=== PATIENT | female | born 1960 | race Caucasian/White ===

== ENCOUNTER → 2018-02-23 14:24 | Outpatient (CLI) | payer OTHER, SELFPAY ==
--- NOTE | 2018-02-23 | DI.CT.S_ITS ---
PROCEDURE: CT LUNG LOW DOSE SCREENING INDICATIONS: NICOTINE ABUSE/DEPENDENCE TECHNIQUE: Noncontrast 2.0-2.5 mm thick sections acquired from the pulmonary apices to the posterior costophrenic angles. 7 mm thick coronal and sagittal MIP reformats were then acquired. A low radiation dose technique was utilized. COMPARISON: None. FINDINGS: Image quality: Diagnostic, given the low radiation dose technique. Lungs and pleura: No effusions or consolidations. No pneumothorax. No nodules or mass lesion. Mediastinum: Heart size is normal. No pericardial effusion. No mediastinal adenopathy by size criteria. Thoracic aorta and central pulmonary arteries are normal in size. Esophagus is normal in caliber. No hiatal hernia. Bones and chest wall: No suspicious bony lesions. No vertebral body compression fractures. No axillary or supraclavicular adenopathy by size criteria. Thyroid gland is unremarkable. Abdomen: There is a 10 mm focus of low attenuation within the superior left renal pole consistent with cyst. Visualized upper abdomen solid organs and bowel loops appear normal in the absence of contrast. IMPRESSION: 1. No nodules or mass lesions. Annual screening is recommended. Dictated by: Tabitha Nicholas M.D. on 02/23/2018 at 16:16 Approved by: Tabitha Nicholas M.D. on 02/23/2018 at 16:19
== END ==
PROVIDERS: PCP Physician Assistant Medical; Visit Provider Family Medicine
DX: F17.200 Nicotine dependence, unspecified, uncomplicated (principal)
CPT/HCPCS: 71250

== ENCOUNTER → 2019-11-19 10:22 | Outpatient (CLI) | payer OTHER, SELFPAY ==
[2019-11-20 09:51] LABS: COVID19 Sendout Not Detected (Not Detect)
== END ==
PROVIDERS: PCP Family Medicine; Visit Provider Nurse Practitioner
DX: Z11.59 Encounter for screening for other viral diseases (principal)
CPT/HCPCS: 87635

== ENCOUNTER 2019-11-22 08:03 | Day surgery (SDC) | payer OTHER, SELFPAY ==
[2019-11-22] MEDS: SODIUM CHLORIDE 0.9% 1,000 ML 200 ML IV (08:37)
[2019-11-22 08:40] VITALS: BP 118/76; PULSE 67; RESP 16; TEMP 36.2; O2SAT 96; BMI 32.1
--- NOTE | 2019-11-22 08:56 | PM.HP.1 ---
History of Present Illness History of Present Illness Date Patient Seen: 11/22/19 Time Patient Seen: 08:56 Chief complaint: SCREENING COLONOSCOPY Narrative: This is a 59-year-old woman who had a prior screening colonoscopy 10 years ago which was normal. She says that since then she has had nothing new. She denies any melena, hematochezia, unexplained weight loss, unexplained abdominal pain. She denies any family history of colon polyps or colon cancers. ROS: COPD, neuropathy, denies nausea, reports loose stools. Thirteen system review is otherwise negative other than as mentioned below and in HPI. PE: GENERAL: Well groomed and cooperative. Appears stated age. Answers questions promptly and appropriately. Vital signs noted. HENT: Normocephalic, atraumatic. Hearing intact. EYES: Conjunctiva pink, sclera white, no periorbital swelling. CARDIOVASCULAR: Regular rate. No pedal edema. RESPIRATORY: Non-tachypneic, breathing comfortably on room air. GASTROINTESTINAL: Abdomen soft and non-distended GENITALURINARY: No flank tenderness. MUSCULOSKELETAL: Equal tone and mass bilaterally. SKIN: Warm, dry, soft, appropriate color for ethnicity. No other lesions, rashes, or wounds. NEURO: Alert and Oriented X 3. No gross sensory deficits, or cognitive issues. PSYCH: Appropriate affect and mood. Patient History Medical History COPD (chronic obstructive pulmonary disease) (Acute) Diabetes (Acute) Hypertension (Acute) Surgical History H/O sinus surgery (Acute) H/O: hysterectomy (Acute) History of back surgery (Acute) Family & Social History Social History: household members spouse,family Tobacco & Substance use: Tobacco type cigarettes Smoking Status Current every day smoker Smoking packs per day 2 alcohol intake never Substance Use Type does not use Meds Home Medications and Allergies Home Medications Medication Instructions Recorded Confirmed Type albuterol sulfate 2 puff INHALATION QAM 11/22/19 11/22/19 History atenolol 25 mg PO DAILY 11/22/19 11/22/19 History furosemide 20 mg PO DAILY 11/22/19 11/22/19 History hydrochlorothiazide 25 mg PO DAILY 11/22/19 11/22/19 History levothyroxine 25 mcg PO DAILY 11/22/19 11/22/19 History lisinopril 10 mg PO DAILY 11/22/19 11/22/19 History metformin 1,000 mg PO QPM 11/22/19 11/22/19 History montelukast 10 mg PO DAILY 11/22/19 11/22/19 History Allergies Allergy/AdvReac Type Severity Reaction Status Date / Time cefpodoxime [From Vantin] Allergy Mild Rash Verified 11/22/19 08:22 Exam Vital Signs (past 8 hours): - 11/22/19 08:40 Temperature 97.2 F L Pulse Rate 67 Respiratory Rate 16 Blood Pressure 118/76 Pulse Oximetry 96 Oxygen Delivery Method Room Air Assessment & Plan Assessment and plan (1) At average risk for colon cancer: Status: Acute Assessment & Plan narrative: Risks and benefits of screening colonoscopy and possible polypectomy were discussed with the patient including risk of bleeding, perforation, need for additional procedures, risks of anesthesia. The patient desires to proceed with the colonoscopy procedure. COVID-19 COVID-19 status: Negative Result date/Date tested (Pos, Neg/Pending): 11/19/19 Time Spent With Patient Time with patient: 15-24 minutes
--- NOTE | 2019-11-22 08:59 | PM.OP.ENDO ---
Operative Date/Time/Diagnoses Date of procedure: 11/22/19 Time of procedure: 08:59 Pre-op diagnosis: Average risk for colon cancer, 10 years since last screening colonoscopy Post-op diagnosis: other (Moderate diverticulosis througout the colon; no polyps) Procedure & Clinicians Study performed: Colonoscopy Conscious sedation performed by the endoscopist Indications: Average risk for colon cancer, 10 years since last screening colonoscopy Surgeon: Lily Dykes Procedure Notes SCOAP/Timeout: Performed Procedure in detail: The patient was brought to the room and placed in left lateral decubitus position with all bony prominences padded. A time-out was performed and then the patient was given procedural sedation starting with [4] mg of Versed and [100] mcg of fentanyl. Total of 5 mg of Versed and 150 micro g of fentanyl were given for the entire procedure. Vitals were monitored throughout the procedure and remained stable. Once adequately sedated, the procedure was begun. A rectal exam was performed revealing [no abnormalities]. The colonoscope was then introduced to the rectum and advanced to the cecum in the usual fashion. []The cecum was identified by the appendiceal orifice, the mucosal tri-fold, and the ileocecal valve. The scope was then retracted while rotating side to side and examining each mucosal fold. Moderate diverticulosis was seen throughout the colon without signs of active diverticulitis. No polyps or other lesions were seen. [] At the conclusion of the procedure retroflexion was performed and [small grade 1-2 internal hemorrhoids without stigmata of bleeding were seen]. The scope was then withdrawn from the rectum the procedure was concluded. The patient tolerated the procedure well and was transferred to the PACU in stable condition. Scope withdrawal time: 8 Sedation minutes: 18 Findings: diverticulosis (Moderate diverticulosis throughout the colon) Specimen(s): none sent Complications: none Impression: Moderate diverticulosis Post-procedure Recommendations: Colonscopy in 10 years and Other recommendation (Use of fiber supplement) Follow up: as needed Disposition: PACU
[2019-11-22] MEDS: fentaNYL 250 MCG/5 ML INJ IV ×2 (09:02→09:11)
[2019-11-22] MEDS: MIDAZOLAM 5 MG/5 ML VIAL IV ×3 (09:02→09:11)
[2019-11-22 09:25] VITALS: BP 131/67; PULSE 82; RESP 18; TEMP 36.3; O2SAT 98
[2019-11-22 09:30] VITALS: BP 118/77; PULSE 78; RESP 20; O2SAT 97
[2019-11-22 09:33] VITALS: BP 127/77; PULSE 70; RESP 16; TEMP 35.9; O2SAT 97
[2019-11-22 09:53] VITALS: BP 115/79; PULSE 73; RESP 16; TEMP 36.6; O2SAT 96
== END 2019-11-22 09:55 | disposition home or self-care (01) ==
PROVIDERS: PCP Family Medicine; Referring Provider Family Medicine; Visit Provider Surgery
PROC: 0DJD8ZZ Inspection of Lower Intestinal Tract, Via Natural or Artificial Opening Endoscopic (ICD-10-PCS; CPT 45378; principal; 2019-11-22 09:15)
DX: Z12.11 Encounter for screening for malignant neoplasm of colon (principal); K57.30 Diverticulosis of large intestine without perforation or abscess without bleeding; K64.0 First degree hemorrhoids
CPT/HCPCS: 45378; 99152; J2250; J3010

== ENCOUNTER 2020-10-25 14:06 | Emergency (ER) | payer OTHER, SELFPAY ==
[2020-10-25 14:15] VITALS: BP 128/70; PULSE 69; RESP 18; TEMP 37.1; O2SAT 99
--- NOTE | 2020-10-25 14:18 | DI.RAD.S_ITS ---
PROCEDURE: XR HIP W PEL IF DONE RT 2V INDICATIONS: worsening pain for several days no known injury TECHNIQUE: AP pelvis with lateral view(s) of the right hip(s). COMPARISON: None. FINDINGS: Bones: No fractures or dislocations. Pelvic ring appears intact. No suspicious bony lesions. Soft tissues: The visualized bowel gas pattern is normal. Faint calcification along the superolateral aspect of the right acetabular rim. No suspicious soft tissue calcifications. Surgical changes in the right lower quadrant of the abdomen. IMPRESSION: 1. No fracture or dislocation. 2. Possibly capsular calcification seen along the right femoroacetabular joint laterally. Dictated by: Shawna Pretty M.D. on 10/25/2020 at 14:39 Approved by: Shawna Pretty M.D. on 10/25/2020 at 14:41
--- NOTE | 2020-10-25 18:42 | ED.LOWEXIN ---
HPI - Extremity Injury (Lower) General Chief Complaint: Extremity Injury, Lower Stated Complaint: Rt Leg/Groin Pain Time Seen by Provider: 10/25/20 18:42 Source: patient Mode of arrival: Ambulatory Limitations: no limitations History of Present Illness HPI Narrative: This is a 60-year-old female who comes emergency department with complaint of right leg/hip pain. Patient's pain started in her right buttock and is radiating down towards her knee. It has been 5 days it started on Monday. She does recall any incident or any particular movement that seem to cause her symptoms. She has had low back pain in the past with 2 prior lumbar surgeries. She does not have any low back pain today. She does not have any numbness, tingling or new weakness. She does have chronic weakness with foot drop on the left but her symptoms are on the right today. No saddle anesthesia. No bowel or bladder incontinence. No fevers. She denies any other symptoms. She has tried 1 of her 's Soma but was not particularly helpful. She has been using a walker at home but finds it quite uncomfortable to weightbear. Related Data Home Medications Medication Instructions Recorded Confirmed albuterol sulfate 90 mcg/actuation 2 puff INHALATION QAM 11/22/19 11/22/19 aerosol inhaler atenolol 25 mg tablet 25 mg PO DAILY 11/22/19 11/22/19 furosemide 20 mg tablet 20 mg PO DAILY 11/22/19 11/22/19 hydrochlorothiazide 25 mg tablet 25 mg PO DAILY 11/22/19 11/22/19 levothyroxine 25 mcg tablet 25 mcg PO DAILY 11/22/19 11/22/19 lisinopril 10 mg tablet 10 mg PO DAILY 11/22/19 11/22/19 metformin 500 mg tablet,extended 1,000 mg PO QPM 11/22/19 11/22/19 release 24 hr montelukast 10 mg tablet 10 mg PO DAILY 11/22/19 11/22/19 Previous Rx's Medication Instructions Recorded gabapentin 300 mg capsule 300 mg PO TID #30 cap 10/25/20 (Neurontin) hydrocodone 5 mg-acetaminophen 325 1 tab PO Q6H PRN #7 tab 10/25/20 mg tablet Allergies Allergy/AdvReac Type Severity Reaction Status Date / Time cefpodoxime [From Vantin] Allergy Mild Rash Verified 11/22/19 08:22 Review of Systems Review of Systems ROS Unobtainable: All systems reviewed & are unremarkable except as noted in HPI and below Patient History Medical History COPD (chronic obstructive pulmonary disease) Diabetes Hypertension Surgical History H/O sinus surgery H/O: hysterectomy History of back surgery Social History household members: spouse and family Smoking Status: Current every day smoker alcohol intake: never Smoking Status: Current every day smoker Substance Use Type: does not use Exam Narrative Exam Narrative: GENERAL: Alert and oriented x three, female in mild distress, sitting on edge of bed. HEENT: Head normocephalic, atraumatic, EOMI, pupils reactive, face symmetric, moist mucous membranes NECK: Supple, full range of motion CARDIOVASCULAR: Regular rate and rhythm without murmurs, rubs or gallops. RESPIRATORY: Breath sounds equal bilaterally, no wheezes rales or rhonchi. ABDOMEN: Soft, nontender. Normoactive bowel sounds all 4 quadrants. No guarding or rebound, rigidity, no mass : No CVA tenderness BACK: No cervical, thoracic or lumbar vertebral point tenderness. Patient has normal range of motion. Rectal exam is deferred. Muscle strength is 5/5 in right lower extremities with chronic foot drop of left foot but 5/5 at thigh, Tibialis pulses are 2+ and lower extremities. Sensation is intact in the lower extremities. EXTREMITIES: Normal range of motion, no clubbing or edema. Neurovascularly intact NEUROLOGICAL: Cranial nerves II through XII grossly intact. Moving all extremities SKIN: Warm, dry, no petechiae, no rashes or lesions. Initial Vital Signs Initial Vital Signs: Vital Signs Temperature 98.7 F 10/25/20 14:15 Pulse Rate 69 10/25/20 14:15 Respiratory Rate 18 10/25/20 14:15 Blood Pressure 128/70 10/25/20 14:15 Pulse Oximetry 99 10/25/20 14:15 Course Orders Ordered: Discontinued Medications Hydrocodone Bitart/Acetaminophen (Hydrocodone/Acet 5/325 Prepack) 1 bottle MISC SEEINSTR ONE Stop: 10/25/20 18:52 Last Admin: 10/25/20 18:54 Dose: 1 bottle Documented by: JAMEY Ketorolac Tromethamine (Ketorolac 30 Mg/Ml Vial) 30 mg IM NOW ONE Stop: 10/25/20 18:52 Last Admin: 10/25/20 18:55 Dose: 30 mg Documented by: JAMEY Vital Signs Vital signs: Vital Signs - 8 hr 10/25/20 14:15 Temperature 98.7 F Pulse Rate 69 Respiratory Rate 18 Blood Pressure 128/70 Pulse Oximetry 99 MDM - Extremity Injury (Lower) Imaging Data Extremity x-ray #1: Radiologist's Impression: [address] [id number] ReportSigned Patient: Abimbola Law AMR#: [id number]: 9Acct:[id number]/Sex: 60 / FDate of Service: 10/25/20Loc: EDAccession Number: [id number] Procedure: XR hip w pel if done RT 2V Ordering Provider: Tamiko Drake D.O. PROCEDURE: XR HIP W PEL IF DONE RT 2V INDICATIONS: worsening pain for several days no known injury TECHNIQUE: AP pelvis with lateral view(s) of the right hip(s). COMPARISON: None. FINDINGS: Bones: No fractures or dislocations. Pelvic ring appears intact. No suspicious bony lesions. Soft tissues: The visualized bowel gas pattern is normal. Faint calcification along the superolateral aspect of the right acetabular rim. No suspicious soft tissue calcifications. Surgical changes in the right lower quadrant of the abdomen. IMPRESSION: 1. No fracture or dislocation. 2. Possibly capsular calcification seen along the right femoroacetabular joint laterally. Dictated by: Shawna Pretty M.D. on 10/25/2020 at 14:39 Approved by: Shawna Pretty M.D. on 10/25/2020 at 14:41 [facility] Narrative Medical decision making narrative: This is a 60-year-old female who has had pain in her right buttock and hip radiating down towards her knee since Monday, 5 days. Patient does not recall any injury. She has had chronic low back issues in the past but this feels different and she is not having any back pain. She states it starts more in the buttock and radiates down words. It is painful for to weightbear. She does not any decrease in strength on her right side. She has chronic footdrop on the left. She has not had any new neurologic changes. Patient does not have any other red flag symptoms. She has been getting around and has a walker at home that she has been using. Patient was given referral for 2 options for orthopedic surgery. Discussed that she does have some calcification of the femoroacetabular joint on her exam she is not particularly tender over the trochanter and her examination and clinical findings seem more consistent with radiculopathy. But discussed with patient she would probably benefit from following up with orthopedic to be more closely examined. Discharge Plan Departure Patient Disposition: Home Clinical Impression: Right sided sciatica, Calcification, joint Instructions: DI for Back Pain With Sciatica Activity Restrictions/Additional Instructions: Follow up with your physician and/or orthopedic surgery. Your imaging today shows some possible calcification at the right femoroacetabular joint. Unsure if this could be the cause of your pain is her symptoms do see somewhat consistent with sciatica as well. I think it may be helpful to follow-up with orthopedic surgery for further evaluation. This is included below. Take pain medication daily as prescribed. This medication can be titrated upwards if it is not effective. It can be very helpful for nerve pain/ In the short term you may take narcotic pain medication. This medication can make you sleepy do not drive, perform hazardous activities or make any major decisions while taking it. This medication will make you constipated please take a stool softener once to twice daily until stools are soft and regular. Prescription was sent to [facility] in [place]. Please return for fevers, rapidly worsening or uncontrolled pain, loss of bowel or bladder control, new weakness, inability to move her leg, feel your leg, or other new or concerning symptoms. Prescriptions: New hydrocodone-acetaminophen 5-325 mg tablet 1 tab PO Q6H PRN (Reason: pain) Qty: 7 RF: 0 gabapentin [Neurontin] 300 mg capsule 300 mg PO TID Qty: 30 RF: 0 No Action atenolol 25 mg tablet 25 mg PO DAILY RF: 0 levothyroxine 25 mcg tablet 25 mcg PO DAILY RF: 0 lisinopril 10 mg tablet 10 mg PO DAILY RF: 0 montelukast 10 mg tablet 10 mg PO DAILY RF: 0 hydrochlorothiazide 25 mg tablet 25 mg PO DAILY RF: 0 furosemide 20 mg tablet 20 mg PO DAILY RF: 0 albuterol sulfate 90 mcg/actuation HFA aerosol inhaler 2 puff INHALATION QAM RF: 0 metformin 500 mg tablet extended release 24 hr 1,000 mg PO QPM RF: 0 Referrals: Thom Villa MD [Physician] - Ladarius Martini MD [Physician] - Sean Guzmán DO [Primary Care Provider] -
[2020-10-25] MEDS: HYDROCODONE/ACET 5/325 PREPACK 1 BOTTLE MISC (18:54)
[2020-10-25] MEDS: KETOROLAC 30 MG/ML VIAL IM (18:55)
[2020-10-25 19:23] VITALS: BP 137/62; PULSE 65; RESP 15; O2SAT 98
== END 2020-10-25 19:24 | disposition home or self-care (01) ==
PROVIDERS: Emergency Provider Emergency Medicine; PCP Family Medicine
DX: M54.31 Sciatica, right side (principal); M25.80 Other specified joint disorders, unspecified joint
CPT/HCPCS: 73502; 96372; 99283; J1885

== ENCOUNTER → 2022-02-22 08:57 | Outpatient (CLI) | payer OTHER, SELFPAY ==
--- NOTE | 2022-02-22 | DI.MG.S_ITS ---
BILATERAL DIGITAL SCREENING MAMMOGRAM 3D/2D WITH CAD: 02/22/2022 CLINICAL: Routine screening. Comparison is made to exams dated: 05/30/2019 mammogram, 07/01/2015 mammogram, and 05/29/2014 mammogram - outside location. There are scattered areas of fibroglandular density in both breasts (category b / 25%-50% glandular tissue). Current study was also evaluated with a Computer Aided Detection (CAD) system. No significant masses, calcifications, or other findings are seen in either breast. There has been no significant interval change. IMPRESSION: NEGATIVE There is no mammographic evidence of malignancy. A 1 year screening mammogram is recommended. Based on the Tyrer Cuzick model (a risk assessment model) the patient's lifetime risk is 5.6% and her 10 year risk is 2.5%. According to the ACR, ACS, and NCCN guidelines, an annual breast MRI exam along with mammogram is recommended if the patient's lifetime risk is 20% or greater. This exam was interpreted at Station ID: [id number]. NOTE: For mammograms, a report in lay terms will be sent to the patient. Approximately 15% of breast malignancies will not be visualized mammographically. In the management of a palpable breast mass, a negative mammogram must not discourage biopsy of a clinically suspicious lesion. Electronically Signed By: Osbaldo tineo/yanet:02/22/2022 10:53:35 letter sent: Normal Exam ACR BI-RADS Category 1: Negative 3341F
== END ==
PROVIDERS: PCP Nurse Practitioner Family; Referring Provider Nurse Practitioner Family; Visit Provider Nurse Practitioner Family
DX: Z12.31 Encounter for screening mammogram for malignant neoplasm of breast (principal); Z78.0 Asymptomatic menopausal state; Z13.820 Encounter for screening for osteoporosis; M85.852 Other specified disorders of bone density and structure, left thigh; Z90.710 Acquired absence of both cervix and uterus
CPT/HCPCS: 77063; 77067; 77080

== ENCOUNTER → 2022-07-20 07:43 | Outpatient (CLI) | payer OTHER, SELFPAY ==
--- NOTE | 2022-07-20 07:44 | DI.RAD.S_ITS ---
PROCEDURE: XR FOOT LT MIN 3V INDICATIONS: left lateral foot pain, heel pain, and arch pain TECHNIQUE: 3 views of the foot were acquired. COMPARISON: [facility], , FOOT 2V LEFT, 02/14/2007, 9:56. FINDINGS: Bones: No fractures or dislocations. No suspicious bony lesions. Minor dorsal calcaneal spurring, likely enthesopathy. Minor degenerative joint space loss and slight spurs elsewhere in the midfoot. Soft tissues: No tibiotalar joint effusion. Achilles tendon appears normal. IMPRESSION: 1. Minor degenerative changes. Dictated by: Shawna Pretty M.D. on 07/20/2022 at 12:35 Approved by: Shawna Pretty M.D. on 07/20/2022 at 12:36
[2022-07-20 09:33] LABS: Hematocrit 43.5 % (36-46); Hemoglobin 14.8 g/dL (12.0-16.0); Mean Corpuscular HGB Conc 34.1 % (30-36); Mean Corpuscular Hemoglobin 30.7 PG (26-34); Mean Corpuscular Volume 90.1 fL (80-100); Platelet Count 283 X10^3/uL (150-400); Red Blood Cell Count 4.82 X10^6/uL (4.0-5.2); Red Cell Distribution Width 13.9 % (11.6-14.8); White Blood Cell Count 9.3 X10^3/uL (4.5-11.0)
[2022-07-20 09:54] LABS: Alanine Aminotransferase 16 IU/L (<35); Albumin 4.2 g/dL (3.5-5.0); Albumin Globulin Ratio 1.6 (1.0-2.8); Alkaline Phosphatase 88 U/L (38-126); Aspartate Aminotransferase 19 IU/L (14-36); BUN Creatinine Ratio 19.7 (6-22); Bilirubin Total 0.7 mg/dL (0.2-1.3); Blood Urea Nitrogen 15 mg/dL (7-17); Calcium 9.2 mg/dL (8.4-10.2); Carbon Dioxide 28 mmol/L (22-32); Chloride 99 mmol/L (98-107); Cholesterol 160 mg/dL (140-199); Estimated Glomerular Filt Rate > 60 mL/min (>60); Globulin 2.6 g/dL (1.7-4.1); Glucose 109 mg/dL (80-110); HDL Cholesterol 52 mg/dL (40-60); HEMOLYSIS < 15 (0-50); LDL Cholesterol Calculated 92 mg/dL (<100); Potassium 4.2 mmol/L (3.4-5.1); Sodium 135 mmol/L (137-145); Total Protein 6.8 g/dL (6.3-8.2); Triglycerides 78 mg/dL (35-150)
[2022-07-20 10:05] LABS: Creatinine Urine Random 12.8 mg/dL
[2022-07-20 10:13] LABS: Microalbumin Urine Random < 0.6 mg/dL (0-1.6)
[2022-07-20 10:17] LABS: Thyroid Stimulating Hormone 1.34 uIU/mL (0.47-4.68)
[2022-07-21 15:51] LABS: x Labcorp Estim. Avg Glu (eAG) 131 mg/dL (.); x Labcorp Hemoglobin A1c 6.2 % (4.8-5.6)
== END ==
PROVIDERS: PCP Nurse Practitioner; Referring Provider Nurse Practitioner; Visit Provider Nurse Practitioner
DX: M79.672 Pain in left foot (principal); E03.9 Hypothyroidism, unspecified; E11.69 Type 2 diabetes mellitus with other specified complication; E78.5 Hyperlipidemia, unspecified; I10 Essential (primary) hypertension; Z72.0 Tobacco use; Z79.899 Other long term (current) drug therapy
CPT/HCPCS: 36415; 73630; 80053; 80061; 82043; 82570; 83036; 84443; 85027

== ENCOUNTER → 2022-09-09 07:22 | Outpatient (CLI) | payer OTHER, SELFPAY ==
[2022-09-12 11:52] LABS: Fecal Immunochemical Test Negative (Negative)
== END ==
PROVIDERS: PCP Nurse Practitioner; Referring Provider Nurse Practitioner; Visit Provider Nurse Practitioner
DX: Z12.11 Encounter for screening for malignant neoplasm of colon (principal)
CPT/HCPCS: 82274

== ENCOUNTER → 2023-01-31 07:38 | Outpatient (CLI) | payer OTHER, SELFPAY ==
[2023-01-31 10:58] LABS: Alanine Aminotransferase 19 IU/L (<35); Albumin 4.1 g/dL (3.5-5.0); Albumin Globulin Ratio 1.4 (1.0-2.8); Alkaline Phosphatase 84 U/L (38-126); Aspartate Aminotransferase 21 IU/L (14-36); BUN Creatinine Ratio 17.8 (6-22); Bilirubin Total 0.7 mg/dL (0.2-1.3); Blood Urea Nitrogen 13 mg/dL (7-17); Calcium 9.9 mg/dL (8.4-10.2); Carbon Dioxide 29 mmol/L (22-32); Chloride 99 mmol/L (98-107); Cholesterol 165 mg/dL (140-199); Estimated Glomerular Filt Rate > 60 mL/min (>60); Globulin 2.9 g/dL (1.7-4.1); Glucose 104 mg/dL (80-110); HDL Cholesterol 52 mg/dL (40-60); HEMOLYSIS < 15 (0-50); LDL Cholesterol Calculated 87 mg/dL (<100); Potassium 3.9 mmol/L (3.4-5.1); Sodium 136 mmol/L (137-145); Triglycerides 131 mg/dL (35-150)
[2023-01-31 14:54] LABS: Hemoglobin A1C% w Est Avg Glu 6.1 % (4.0-6.0)
== END ==
PROVIDERS: PCP Nurse Practitioner; Referring Provider Nurse Practitioner; Visit Provider Nurse Practitioner
DX: E11.69 Type 2 diabetes mellitus with other specified complication (principal); E78.5 Hyperlipidemia, unspecified; I10 Essential (primary) hypertension; E11.9 Type 2 diabetes mellitus without complications; Z53.20 Procedure and treatment not carried out because of patient's decision for unspecified reasons
CPT/HCPCS: 36415; 80053; 80061; 83036

== ENCOUNTER → 2023-10-30 10:43 | Outpatient (CLI) | payer MEDICARE, OTHER, SELFPAY ==
[2023-10-30 12:12] LABS: Add Manual Diff / Slide Review NO; Basophils Absolute Auto 100 /uL (0-100); Basophils Percent Auto 0.5 % (0-2); Eosinophils Absolute Auto 0 /uL (0-450); Eosinophils Percent Auto 0.5 % (2-4); Hematocrit 44.8 % (36-46); Hemoglobin 15.1 g/dL (12.0-16.0); Lymphocytes Absolute Auto 2100 /uL (1100-4500); Lymphocytes Percent Auto 19.8 % (25-40); Mean Corpuscular HGB Conc 33.7 % (30-36); Mean Corpuscular Hemoglobin 30.9 PG (26-34); Mean Corpuscular Volume 91.7 fL (80-100); Monocytes Absolute Auto 600 /uL (0-900); Monocytes Percent Auto 5.5 % (3-14); Neutrophils Absolute Auto 7900 /uL (1500-7000); Neutrophils Percent Auto 73.7 % (50-75); Platelet Count 284 X10^3/uL (150-400); Red Blood Cell Count 4.89 X10^6/uL (4.0-5.2); Red Cell Distribution Width 13.7 % (11.6-14.8); White Blood Cell Count 10.8 X10^3/uL (4.5-11.0)
[2023-10-30 12:18] LABS: Hemoglobin A1C% w Est Avg Glu 5.7 % (4.0-6.0)
[2023-10-30 12:46] LABS: Alanine Aminotransferase 17 IU/L (<35); Albumin 4.3 g/dL (3.5-5.0); Albumin Globulin Ratio 1.7 (1.0-2.8); Alkaline Phosphatase 83 U/L (38-126); Aspartate Aminotransferase 24 IU/L (14-36); BUN Creatinine Ratio 14.5 (6-22); Bilirubin Total 0.7 mg/dL (0.2-1.3); Blood Urea Nitrogen 11 mg/dL (7-17); Calcium 9.8 mg/dL (8.4-10.2); Carbon Dioxide 30 mmol/L (22-32); Chloride 98 mmol/L (98-107); Estimated Glomerular Filt Rate > 60 mL/min (>60); Globulin 2.6 g/dL (1.7-4.1); Glucose 113 mg/dL (80-110); HEMOLYSIS < 15 (0-50); Potassium 4.7 mmol/L (3.4-5.1); Sodium 136 mmol/L (137-145); Total Protein 6.9 g/dL (6.3-8.2)
[2023-10-30 14:12] LABS: Creatinine Urine Random 25.85 mg/dL
[2023-10-30 14:16] LABS: Microalbumin Urine Random < 0.6 mg/dL (0-1.6)
== END ==
PROVIDERS: PCP Nurse Practitioner; Referring Provider Nurse Practitioner; Visit Provider Nurse Practitioner
DX: J44.9 Chronic obstructive pulmonary disease, unspecified (principal); I10 Essential (primary) hypertension; E11.69 Type 2 diabetes mellitus with other specified complication; E78.5 Hyperlipidemia, unspecified; E03.9 Hypothyroidism, unspecified; D64.9 Anemia, unspecified
CPT/HCPCS: 36415; 80053; 82043; 82570; 83036; 84443; 85025

== ENCOUNTER → 2024-01-19 07:45 | Outpatient (CLI) | payer MEDICARE, OTHER, SELFPAY ==
--- NOTE | 2024-01-19 07:47 | DI.ECHO.S_ITS ---
[facility]---------+ [facility] : : [address] : : [place] : : [id number] : : Phone: [phone] Echocardiogram Report + + :Name: RICARDO ZAZUETA Study Date: 01/19/2024 Height: 70 in : :Hospital ReadingLocation: Weight: 218 lb : : Gender: Female BSA: 2.2 m2 : :: 1960 Age: 63 yrs BP: 123/77 mmHg: :Reason For Study: ESSENTIAL HYPERTENSION : :Ordering Physician: UMAIR, : :CYNTHIA Performed By: Vik Jade : :Referring: CYNTHIA BLOCK : + + Interpretation Summary The left ventricle is normal in size. The ejection fraction is estimated to be 65-70%. There are no focal wall motion abnormalities. Diastolic parameters suggest probable normal left ventricular diastolic function and normal filling pressures. The right ventricle is normal in size and function. The right ventricular systolic pressure is estimated to be at least 26 mmHg based on an estimated right atrial pressure of 3 mm Hg. The left atrium is mildly dilated. There is no significant valvular heart disease. The ascending aorta is mildly enlarged. Procedure: A two-dimensional transthoracic echocardiogram with color flow and Doppler was performed. The study quality was technically good. There is no prior echocardiogram noted for this patient. The patient was in normal sinus rhythm during the exam. Left Ventricle: The left ventricle is normal in size. Left ventricular wall thickness is mildly increased. There is no ventricular septal defect visualized. The ejection fraction is estimated to be 65-70%. There are no focal wall motion abnormalities. Diastolic parameters suggest probable normal left ventricular diastolic function and normal filling pressures. Right Ventricle: The right ventricle is normal in size and function. Atria: The left atrium is mildly dilated. Right atrial size is normal. There is no Doppler evidence for an atrial septal defect. Mitral Valve: The mitral valve is normal in structure and function. There is no mitral regurgitation noted. Aortic Valve: The aortic valve is trileaflet. The aortic valve opens well. No aortic regurgitation is present. Tricuspid Valve: The tricuspid valve is normal in structure and function. There is trace tricuspid regurgitation. The right ventricular systolic pressure is estimated to be at least 26 mmHg based on an estimated right atrial pressure of 3 mm Hg. Pulmonic Valve: The pulmonic valve is normal in structure and function. There is trace pulmonic regurgitation. There is no significant valvular heart disease. Great Vessels: The aortic root is normal size. The ascending aorta is mildly enlarged. The pulmonary artery is normal size. The IVC is of normal diameter and collapses greater than 50% with a sniff. This suggests a low right atrial pressure of 3 mm Hg. Pericardium/ Pleura There is no pericardial effusion. There is no pleural effusion. MMode/2D Measurements & Calculations LVIDd: 4.3 cm LVOT diam: 2.1 cm LVIDs: 2.7 cm Ao root diam: 3.3 cm FS: 37.1 % asc Aorta Diam: 3.9 cm EPSS: 0.68 cm Ao Arch Diam (Prox Trans): 2.3 cm IVSd: 1.2 cm LVPWd: 1.2 cm LV still. diameter/BSA (cm/m^2): 2.0 LV sys. diameter/BSA (cm/m^2): 1.2 LA A2 area: 25.7 cm2 RA long axis: 4.5 cm LA A4 area: 20.0 cm2 RA area: 14.2 cm2 LA length (vol): 5.5 cm RA vol: 37.7 ml LA vol: 78.7 ml RA : 17.4 ml/m2 LA vol index: 36.4 ml/m2 IVC diam: 0.93 cm RVD1 (basal): 3.2 cm RVD2 (mid): 2.9 cm TAPSE: 2.0 cm Doppler Measurements & Calculations Ao V2 max: 130.5 cm/sec LVOT Max Juan Jose: 120.6 cm/sec Ao V2 mean: 95.1 cm/sec LV V1 max P.8 mmHg Ao max P.8 mmHg LV V1 VTI: 33.3 cm Ao mean P.9 mmHg LUCERO(I,D): 3.1 cm2 Ao V2 VTI: 38.0 cm LUCERO(V,D): 3.3 cm2 sev ratio: 0.88 LUCERO indexed to BSA (cm^2/m^2): 1.4 MV E max juan jose: 76.1 cm/sec TR max juan jose: 238.2 cm/sec MV A max juan jose: 74.9 cm/sec TR max P.7 mmHg MV E/A: 1.0 PA V2 max: 102.2 cm/sec Med Peak E' Juan Jose: 6.8 cm/sec PA V2 mean: 71.9 cm/sec E/E' med: 11.2 PA mean P.3 mmHg Lat Peak E' Juan Jose: 7.0 cm/sec PA pr(Accel): 17.3 mmHg E/E' lat: 10.8 E/e' average: 11.0 MV dec time: 0.23 sec SV(LVOT): 119.0 ml Reading Physician:09:11 AM
--- NOTE | 2024-01-19 08:09 | EKG_ITS ---
[address] [address] Test Date: 2024-01-19 Pat Name: Abimbola Law Department: Room: Gender: Female [employer] Manager: NICK : 1960 Requested By: Order Number: [id number] Reading MD: Jan Avelar Measurements Intervals [place] Rate: 59 P: 58 CO: 174 QRS: 24 QRSD: 86 T: 51 QT: 442 QTc: 437 Interpretive Statements Sinus bradycardia Electronically Signed On 01-23-2024 18:48:40 PST by Jan Avelar
== END ==
PROVIDERS: PCP Nurse Practitioner; Referring Provider Nurse Practitioner; Visit Provider Nurse Practitioner
DX: I77.89 Other specified disorders of arteries and arterioles (principal); I10 Essential (primary) hypertension
CPT/HCPCS: 93005; 93306

== ENCOUNTER → 2024-02-05 08:58 | Outpatient (CLI) | payer MEDICARE, OTHER, SELFPAY ==
--- NOTE | 2024-02-05 09:00 | DI.RAD.S_ITS ---
PROCEDURE: XR HIP W PEL IF DONE LT 2V INDICATIONS: back and hip pain TECHNIQUE: To views of the hip were acquired. COMPARISON: [facility], CR, XR HIP W PEL IF DONE RT 2V, 10/25/2020, 14:15. FINDINGS: Bones: No fractures or dislocations. No suspicious bony lesions. The visualized pelvic ring appears intact. Surgical clips noted in the right hemipelvis Soft tissues: No suspicious soft tissue calcifications or masses. IMPRESSION: No acute bony abnormality. Approved by: Salo Gaviria M.D. on 02/05/2024 at 18:57
--- NOTE | 2024-02-05 09:00 | DI.RAD.S_ITS ---
PROCEDURE: XR LUMBAR SPINE 2-3V INDICATIONS: back and hip pain TECHNIQUE: 3 views of the lumbar spine were acquired. COMPARISON: None. FINDINGS: Bones: 5 [id number] vertebrae are present. There is normal bony alignment. No vertebral body compression fractures. No suspicious bony lesions. Disc space narrowing and hypertrophic facet joints and lower lumbar spine Soft tissues: Overlying bowel gas pattern is normal. No suspicious soft tissue calcifications. IMPRESSION: Degenerative disc disease and arthropathy in the lower lumbar spine Approved by: Salo Gaviria M.D. on 02/05/2024 at 18:58
[2024-02-05 10:23] LABS: Hemoglobin A1C% w Est Avg Glu 5.9 % (4.0-6.0)
[2024-02-05 10:36] LABS: Alanine Aminotransferase 24 IU/L (<35); Albumin 4.3 g/dL (3.5-5.0); Albumin Globulin Ratio 1.6 (1.0-2.8); Alkaline Phosphatase 83 U/L (38-126); Aspartate Aminotransferase 25 IU/L (14-36); BUN Creatinine Ratio 14.3 (6-22); Bilirubin Total 0.8 mg/dL (0.2-1.3); Blood Urea Nitrogen 11 mg/dL (7-17); Calcium 9.8 mg/dL (8.4-10.2); Carbon Dioxide 28 mmol/L (22-32); Chloride 101 mmol/L (98-107); Cholesterol 166 mg/dL (140-199); Estimated Glomerular Filt Rate > 60 mL/min (>60); Globulin 2.7 g/dL (1.7-4.1); Glucose 103 mg/dL (80-110); HDL Cholesterol 60 mg/dL (40-60); HEMOLYSIS < 15 (0-50); LDL Cholesterol Calculated 85 mg/dL (<100); Potassium 3.7 mmol/L (3.4-5.1); Sodium 135 mmol/L (137-145); Triglycerides 103 mg/dL (35-150)
== END ==
PROVIDERS: PCP Family Medicine; Referring Provider Family Medicine; Visit Provider Family Medicine
DX: M51.360 Other intervertebral disc degeneration, lumbar region with discogenic back pain only (principal); M47.816 Spondylosis without myelopathy or radiculopathy, lumbar region; J44.9 Chronic obstructive pulmonary disease, unspecified; E11.69 Type 2 diabetes mellitus with other specified complication; E78.5 Hyperlipidemia, unspecified; F17.200 Nicotine dependence, unspecified, uncomplicated; M25.552 Pain in left hip
CPT/HCPCS: 36415; 72100; 73502; 80053; 80061; 83036

== ENCOUNTER → 2024-02-26 10:50 | Outpatient (CLI) | payer MEDICARE, OTHER, SELFPAY ==
--- NOTE | 2024-02-26 10:51 | DI.MG.S_ITS ---
BILATERAL DIGITAL SCREENING MAMMOGRAM 3D/2D WITH CAD: 02/26/2024 CLINICAL: Routine screening. Family history of breast cancer. Comparison is made to exams dated: 02/22/2022 mammogram - [facility], 05/30/2019 mammogram, and 07/01/2015 mammogram - outside location. There are scattered areas of fibroglandular density (category b / 25%-50% glandular tissue). Current study was also evaluated with a Computer Aided Detection (CAD) system. No significant masses, calcifications, or other findings are seen in either breast. There has been no significant interval change. IMPRESSION: NEGATIVE There is no mammographic evidence of malignancy. A 1 year screening mammogram is recommended. Based on the Tyrer Cuzick model (a risk assessment model) the patient's lifetime risk is 5.2% and her 10 year risk is 2.5%. According to the ACR, ACS, and NCCN guidelines, an annual breast MRI exam along with mammogram is recommended if the patient's lifetime risk is 20% or greater. This exam was interpreted at Station ID: [id number]. NOTE: For mammograms, a report in lay terms will be sent to the patient. Approximately 15% of breast malignancies will not be visualized mammographically. In the management of a palpable breast mass, a negative mammogram must not discourage biopsy of a clinically suspicious lesion. Electronically Signed By: Victor Hugo valdes/yanet:02/26/2024 16:54:57 letter sent: Normal Exam ACR BI-RADS Category 1: Negative
--- NOTE | 2024-02-26 10:51 | DI.CT.S_ITS ---
PROCEDURE: CT LUNG LOW DOSE SCREENING INDICATIONS: smoker greater than 40 pack years TECHNIQUE: Noncontrast 2.0-2.5 mm thick sections acquired from the pulmonary apices to the posterior costophrenic angles. 7 mm thick axial MIP, and 5 mm coronal and sagittal reformats were then acquired. For radiation dose reduction, the following was used: automated exposure control, adjustment of mA and/or kV according to patient size. COMPARISON: None. FINDINGS: Image quality: Diagnostic. Lower Neck: No enlarged lymph nodes. Thyroid: No thyroid nodules which require sonographic follow up, per consensus guidelines. Axillae: No enlarged lymph nodes. Chest Wall: Unremarkable. Bones: Unremarkable. Lungs and Pleura: No pneumothorax or pleural effusions. No consolidation or suspicious nodules. Heart: Heart size is normal. Moderate to severe triple-vessel calcifications. No pericardial effusion. Thoracic Vessels: The aorta and pulmonary arteries demonstrate normal size. Mediastinum and Cathleen: No enlarged lymph nodes. Esophagus: No wall thickening. No hiatal hernia. Upper Abdomen: Visualized upper abdomen solid organs and bowel loops appear normal. IMPRESSION: No suspicious pulmonary nodules. LUNG-RADS 1; continued annual screening, if eligible. Clinically Significant Non-pulmonary Findings: Coronary artery calcifications, moderate to severe. Dictated by: Ab Lane M.D. on 02/26/2024 at 16:14 Approved by: Ab Lane M.D. on 02/26/2024 at 16:22
== END ==
LOC: CT 10:51
PROVIDERS: PCP Family Medicine; Referring Provider Family Medicine; Visit Provider Family Medicine
DX: F17.210 Nicotine dependence, cigarettes, uncomplicated (principal); Z12.31 Encounter for screening mammogram for malignant neoplasm of breast; Z80.3 Family history of malignant neoplasm of breast; Z12.2 Encounter for screening for malignant neoplasm of respiratory organs; I25.10 Atherosclerotic heart disease of native coronary artery without angina pectoris
CPT/HCPCS: 71271; 77063; 77067